=== PATIENT | male | born 1995 | race Two or more races ===

== ENCOUNTER 2021-08-28 11:31 | Emergency (ER) | payer BC ==
[~2021-08-28] VITALS: Ht 185.4 cm; Wt 93.0 kg
[2021-08-28] MEDS ORDERED: METH4PAK PO (16:14)
[2021-08-28 16:33] VITALS: BP 120/74
== END 2021-08-28 16:39 | disposition home or self-care (01) ==
LOC: ER 11:31
DX: R06.02 Shortness of breath (principal); Z20.822 Contact with and (suspected) exposure to COVID-19
CPT/HCPCS: 36415; 71045; 87426